=== PATIENT | female | born 2000 | race Caucasian/White ===

== ENCOUNTER → 2020-08-31 | Outpatient (CLI) | payer BC | END | disposition home or self-care (01) | LOC: COVID19 12:16 | PROVIDERS: ATTEND Family Medicine | DX: U07.1 COVID-19 (principal) ==

== ENCOUNTER → 2024-07-05 | Day surgery (SDC) | payer BC ==
[~2024-07-05] VITALS: Ht 157.4 cm; Wt 72.6 kg
[~2024-07-05] MED LIST: ACETAMINOPHEN 100 ML IV ONE; Ketamine Hydrochloride 500 MG/10 ML VIAL IV ONE; Lactated Ringer's Solution 1,000 ML IV ONE; Lactated Ringer's Solution 1,000 ML IV SCH; Lactated Ringer's Solution 500 ML IV ONE; Midazolam Hydrochloride 2 MG/2 ML VIAL IV ONE; fentaNYL CITRATE 100 MCG/2 ML VIAL IV ONE
[2024-07-05 06:26] VITALS: BP 114/68
[2024-07-05 08:42] VITALS: BP 123/68
[2024-07-05 08:57] VITALS: BP 134/80
[2024-07-05 09:27] VITALS: BP 132/87
[2024-07-05 09:42] VITALS: BP 137/84
== END | disposition home or self-care (01) ==
LOC: SDC 07-01 08:45
PROVIDERS: ATTEND Obstetrics & Gynecology
DX: Z30.2 Encounter for sterilization (principal); I10 Essential (primary) hypertension; Z98.891 History of uterine scar from previous surgery; Z88.0 Allergy status to penicillin; Z98.890 Other specified postprocedural states; Z79.899 Other long term (current) drug therapy